=== PATIENT | male | born 1990 | race American Indian/Alaskan Native ===

== ENCOUNTER 2018-12-10 18:21 | Emergency (ER) | payer BC ==
[2018-12-10 18:34] VITALS: BP 149/86
--- NOTE | 2018-12-10 18:34 | Emergency Department Report ---
Blank Doc - Documentation Documentation: This is a 28-year-old male that presents acute on chronic lower back pain. St ated today was moving and developed pain. Stated had a recent fall last week and felt sharp aching pain. Denies any urinary symptoms. This initial assessment/diagnostic orders/clinical plan/treatment(s) is/are subject to change based on patient's health status, clinical progression and re- assessment by fellow clinical providers in the ED. Further treatment and workup at subsequent clinical providers discretion. Patient/guardians urged not to elope from the ED as their condition may be serious if not clinically assessed and managed. Initial orders include: 1- Patient sent to [facility] for further evaluation and treatment 2- xray lumbar spine
--- NOTE | 2018-12-10 19:43 | XRay Report ---
PROCEDURE: XR SPINE LUMBOSACRAL 2-3V TECHNIQUE: Lumbar spine 3 views HISTORY: back pain COMPARISONS: FINDINGS: Vertebral bodies are normal height and alignment. Disc spaces are within normal limits. Transverse an d spinous processes appear intact. IMPRESSION: Negative lumbar spine series. This document is electronically signed by Amauri Clark MD., Dec 10 2018 07:41:20 PM ET
--- NOTE | 2018-12-10 20:01 | Emergency Department Report ---
ED Back Pain/Injury HPI - General Chief Complaint: Back Pain/Injury Stated Complaint: BACK PAIN Time Seen by Provider: 12/10/18 18:32 Source: patient Limitations: No Limitations - History of Present Illness Initial Comments: 28-year-old -[place] male comes in complaining of lower back pain that has been going on for a while. Patient reports he suffers from chronic back pain but since last week it has started to aggravate him more. Patient reports he went to urgent care on Friday and they told him it was a muscle spasm. Patient has only taken Tylenol last dose this morning. Patient reports most of the pain is on the right lower side. Patient reports is worse with walking bending turning reaching up. Patient denies any trauma. Patient denies any urinary incontinence no bowel incontinent. MD Complaint: back pain Similar Symptoms Previously: Yes Place: work Radiation: none Severity: severe Severity scale (0 -10): 8 - Related Data Previous Rx's Medication Instructions Recorded Last Taken Type Amoxicillin [Trimox CAP] 500 mg PO Q8H #30 capsule 11/17/14 Unknown Rx methOCARBAMOL [Robaxin] 750 mg PO Q8H PRN #21 tablet 11/17/14 Unknown Rx Baclofen [Lioresal] 10 mg PO TID #15 tab 12/10/18 Unknown Rx Naproxen [Naprosyn TAB] 500 mg PO BID #20 tablet 12/10/18 Unknown Rx Allergies Allergy/AdvReac Type Severity Reaction Status Date / Time No Known Allergies Allergy Verified 12/10/18 18:23 ED Review of Systems ROS: Stated complaint: BACK PAIN Other details as noted in HPI Comment: All other systems reviewed and negative Gastrointestinal: denies: abdominal pain, nausea, vomiting Genitourinary: denies: urgency, dysuria, frequency, hematuria, discharge Musculoskeletal: back pain. denies: joint swelling, arthralgia, myalgia, other Skin: denies: rash, lesions Neurological: denies: headache, weakness, paresthesias Psychiatric: denies: anxiety, depression ED Past Medical Hx - Past Medical History Previous Medical History?: No - Surgical History Past Surgical History?: No - Social History Smoking Status: Current Every Day Smoker Substance Use Type: Alcohol, Marijuana - Medications Home Medications: Home Medications Medication Instructions Recorded Confirmed Last Taken Type Amoxicillin [Trimox CAP] 500 mg PO Q8H #30 capsule 11/17/14 Unknown Rx methOCARBAMOL [Robaxin] 750 mg PO Q8H PRN #21 tablet 11/17/14 Unknown Rx Baclofen [Lioresal] 10 mg PO TID #15 tab 12/10/18 Unknown Rx Naproxen [Naprosyn TAB] 500 mg PO BID #20 tablet 12/10/18 Unknown Rx ED Physical Exam - General Limitations: No Limitations General appearance: alert, in no apparent distress - Head Head exam: Present: atraumatic, normocephalic - Eye Eye exam: Present: normal appearance - ENT ENT exam: Present: mucous membranes moist - Neck Neck exam: Present: normal inspection - Extremities Exam Extremities exam: Present: normal inspection, full ROM - Back Exam Back exam: Present: full ROM, muscle spasm, paraspinal tenderness - Neurological Exam Neurological exam: Present: alert, oriented X3, normal gait - Psychiatric Psychiatric exam: Present: normal affect, normal mood - Skin Skin exam: Present: warm, dry, intact, normal color. Absent: rash ED Course Vital Signs 12/10/18 18:32 Temperature 98.7 F Pulse Rate 87 Respiratory 18 Rate Blood Pressure 149/86 [Right] O2 Sat by Pulse 98 Oximetry ED Medical Decision Making - Radiology Data Radiology results: report reviewed Patient: ZBIGNIEW HOLLEY MR#: [id number] : 1990 Acct:[id number] Age/Sex: 28 / M ADM Date: 12/10/18 Loc: ED Attending Dr: Ordering Physician: GERI AMADO NP Date of Service: 12/10/18 Procedure(s): XR spine lumbosacral 2-3V Accession Number(s): [id number] cc: GERI AMADO NP Fluoro Time In Minutes: PROCEDURE: XR SPINE LUMBOSACRAL 2-3V TECHNIQUE: Lumbar spine 3 views HISTORY: back pain COMPARISONS: FINDINGS: Vertebral bodies are normal height and alignment. Disc spaces are within normal limits. Transverse and spinous processes appear intact. IMPRESSION: Negative lumbar spine series. This document is electronically signed by Amauri Morrison MD., Dec 10 2018 07: 41:20 PM ET Transcribed By: QUEENIE Dictated By: WALE MORRISON MD Electronically Authenticated By: WALE MORRISON MD Signed Date/Time: 12/10/181942 DD/ 02 TD/TT: 12/10/181902 - Medical Decision Making 28-year-old -[place] male comes in for acute on chronic back pain. X- ray shows normal examination. Discussed the patient he can take ibuprofen or naproxen for pain management. Discussed the patient increase his water intake. 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 Patient verbalized understanding. Also discussed the patient he needs to obtain a primary care provider patient verbalized understanding. Critical care attestation.: If time is entered above; I have spent that time in minutes in the direct care of this critically ill patient, excluding procedure time. ED Disposition Clinical Impression: Back pain Disposition: DC-01 TO HOME OR SELFCARE Is pt being admited?: No Does the pt Need Aspirin: No Condition: Stable Instructions: Back Pain (ED), Chronic Back Pain (ED) Additional Instructions: Please take pain medication and muscle relaxant as prescribed. Increase her water intake while taking naproxen. Do not operate heavy machinery while taking baclofen. Please follow-up with a primary care provider I have listed several below for your convenience. Prescriptions: Baclofen [Lioresal] 10 mg PO TID #15 tab Naproxen [Naprosyn TAB] 500 mg PO BID #20 tablet Referrals: KODY MCCOY MD [Primary Care Provider] - 3-5 Days MARIA DEL CARMEN MATHEWS MD [Staff Physician] - 3-5 Days Forms: Work/School Release Form(ED)
== END 2018-12-10 20:10 | disposition home or self-care (01) ==
LOC: ED 18:21
DX: M54.5 Low back pain (principal); G89.29 Other chronic pain; F17.200 Nicotine dependence, unspecified, uncomplicated; F12.10 Cannabis abuse, uncomplicated
CPT/HCPCS: 72100; 99283